=== PATIENT | female | born 1970 | race African-American/Black ===

== ENCOUNTER 2016-09-04 02:37 | Emergency (ER) | payer OTHER ==
[~2016-09-04] VITALS: Ht 182.9 cm; Wt 108.0 kg
[~2016-09-04 02:37] MED LIST: CEPH-569 PO; CLOT15CR8 TP; HYDR25TA PO; SULF-165 PO
[2016-09-04] MEDS ORDERED: ONDANSETRON HCL 4MG/2ML VIAL IV STA (03:32)
[2016-09-04] MEDS ORDERED: FAMOTIDINE 20MG/2ML VIAL IV STA (03:32)
[2016-09-04] MEDS ORDERED: MORPHINE SULFATE 4 MG/ML CPJ (NOT FOR IM USE) IV STA (03:32)
[2016-09-04] MEDS ORDERED: SODIUM CHLORIDE 0.9% 1,000 ML IV ONE (03:32)
[2016-09-04 03:53] LABS: MEAN CORPUSCULAR HEMOGLOBIN 23.6 pg (28.0-32.0); MEAN CORPUSCULAR HGB CONC 31.3 g/dL (31.0-37.0); MEAN CORPUSCULAR VOLUME 75.3 fL (81.0-99.0); MEAN PLATELET VOLUME 8.7 fl (7.4-10.4); PLATELET 333 x1000/uL (130-400); RED BLOOD CELL COUNT 4.65 mill/uL (4.2-5.4); RED CELL DISTRIBUTION WIDTH 17.5 % (11.6-14.6); WHITE BLOOD COUNT 11.4 x1000/uL (4.5-11.0)
[2016-09-04 03:56] LABS: DIFFERENTIAL COMMENT 1
[2016-09-04 04:17] LABS: ALANINE AMINOTRANSFERASE 19 IU/L (13-61); ALBUMIN 3.5 g/dL (3.4-5.0); ANION GAP 16; CALCIUM 8.9 mg/dL (8.5-10.1); CARBON DIOXIDE 26 mEq/L (21-32); CHLORIDE 99 mEq/L (98-107); INDEX HEMOLYSI 1 (1-3); INDEX ICTERIC 1 (1-4); INDEX LIPEMIC 1 (1-3); LIPASE 93 IU/L (73-393); TROPONIN I < 0.02 ng/mL (0.00-0.04); UREA NITROGEN BLOOD 19 mg/dL (7-21); eGFR > 60 mL/min (>60)
[2016-09-04 05:04] LABS: PLATELET ESTIMATE NORMAL
[2016-09-04 06:19] VITALS: BP 134/88
== END 2016-09-04 06:45 | disposition home or self-care (01) ==
LOC: ER 02:42
DX: R10.13 Epigastric pain (principal); R11.2 Nausea with vomiting, unspecified; I10 Essential (primary) hypertension; Z79.899 Other long term (current) drug therapy
CPT/HCPCS: 36415; 71010; 76700; 80053; 83690; 84484; 85025; 93005; 96361; 96374; 96375; 99285; J2270; J2405; J3490; J7030; Z7610